=== PATIENT | female | born 1980 | race Hispanic/Latino ===

== ENCOUNTER 2018-05-19 05:44 | Observation (INO) | payer OTHER ==
[~2018-05-19] VITALS: Ht 152.4 cm; Wt 74.0 kg
[~2018-05-19 05:44] MED LIST: AMOXICILLIN500 MG PO; CEPHALEXIN500 MG PO; FLONASE NASAL50 MCG; LORTAB 5/3255 MG PO; METFORMIN500 MG PO; ROBITUSSIN AC10 ML PO; ULTRAM50 M1 PO; [UNRECOGNIZED DRUG - REMARK]
--- NOTE | 2018-05-19 05:52 | NUR ---
PATIENT IMMEDIATELY TO TREATMENT AREA VIA WHEELCHAIR. UNDRESSED INTO A GOWN, TRIAGE COMPLETED AT BEDSIDE, AWAITING MD ONEIL.
[2018-05-19 06:39] LABS: HEMATOCRIT 43.1 % (37.0-47.0); HEMOGLOBIN 13.4 g/dl (12.0-16.0); IMMATURE GRANULOCYTES 0.3 % (0.0-5.0); MEAN CORPUSCULAR HGB 25.9 pG CALC (26.0-32.0); MEAN CORPUSCULAR HGB CONC 31.1 g/L CALC (32.0-36.0); NEUT# 6.19 thou/uL (2.00-7.15); RED BLOOD COUNT 5.18 mill/uL (4.20-5.60); RED CELL DISTRI WIDTH 14.6 % (11.5-15.5)
[2018-05-19 06:41] LABS: MEAN CELL VOLUME 83.2 fL CALC (80.0-100.0)
--- NOTE | 2018-05-19 06:50 | NUR ---
PT CONTINUES TO RETCH WITHOUT ANY VOMITUS. PT STOPPED FOR A WHILE AFTER REGLAN. PT UNABLE TO GET ANYONE TO CARDIAC CATH TECHNICIAN HER OR HER KIDS.
[2018-05-19 06:52] LABS: ALKALINE PHOSPHATASE 114 u/l (38-126); AMYLASE 73 u/l (30-110); BILIRUBIN, TOTAL 0.7 mg/dL (0.0-1.4); BUN 36 mg/dL (7-17); BUN/CREATININE RATIO 43 (12-20 (CALC)); CARBON DIOXIDE 17 mmol/l (22-30); CHLORIDE 106 mmol/l (95-108); CREATININE 0.8 mg/dL (0.5-1.0); GFR > 60 ML/MIN (>=60 (CALC)); GFR FOR AFR.AMER. > 60 ML/MIN (>=60 (CALC)); LIPASE 149 u/l (23-300); POTASSIUM 4.2 mmol/l (3.5-5.1); SGOT/AST 20 u/l (14-36)
--- NOTE | 2018-05-19 06:55 | NUR ---
PT ACTIVELY VOMITING, DENIES ABD PAIN STATES JUST FEELS NAUSEOUS. MEDICATED ORDERED. IVF BOLUS CONTINUES. VSS.
[2018-05-19 07:00] LABS: ALBUMIN 5.1 g/dL (3.2-5.0); ANION GAP 27 (6-22 (CALC)); SODIUM 146 mmol/l (137-146); TOTAL PROTEIN 8.7 g/dL (6.3-8.2)
--- NOTE | 2018-05-19 07:30 | NUR ---
HEAT TREATER HELPER AT BEDSIDE TO TAKE PT FOR CT SCAN. PT UP FROM STRETCHER AND STARTING VOMITING. PT C/O BURNING TO HER THROAT BUT DENIES ANY OTHER PAIN AT THIS TIME. MD NOTIFIED OF PT STATUS.
--- NOTE | 2018-05-19 08:00 | NUR ---
PT UBNABLE TO RECONCILE MEDICATIONS AT THIS TIME. PER PT WHEN SHE TALKS SHE WILL VOMIT. PT ANSWERING QUESTIONS WITH SHAKING HEAD YES OR NO. PT REPORTS CONTINUED NAUSEA. IV FLUIDS INFUSING WITH NO DIFFICULTY, IV SITE FREE FROM REDNESS/EDEMA.
--- NOTE | 2018-05-19 08:20 | NUR ---
PT DRY HEAVING AT THIS TIME. NOTIFIED, AWAITING NEW ORDERS.
--- NOTE | 2018-05-19 08:45 | NUR ---
PT RESTING COMFORTABLY IN STRETCHER WITH EYES CLOSED. BOTH CHILDREN WATCHING TV AND EATING BREAKFAST AT THIS TIME. PER CHILDREN THEIR MOM'S FRIEND IS COMING TO PICK THEM UP.
--- NOTE | 2018-05-19 09:30 | NUR ---
PT RESTING WITH EYES CLOSED. PT REPORTS CONTINUED NASIEA. D5 IMSUDING, IV SITE REMAINS FREE FROM REDNESS/EDEMA. PT AWARE OF PROBABLE PLAN OF CARE.
[2018-05-19] MEDS ORDERED: FLUOXETINE10 MG PO (10:08)
[2018-05-19] MEDS ORDERED: TROKENDI XR100 MG (10:09)
[2018-05-19] MEDS ORDERED: LOSARTAN POT50 MG PO (10:09)
[2018-05-19] MEDS ORDERED: INVOKANA300 MG (10:09)
--- NOTE | 2018-05-19 10:09 | NUR ---
AT BEDSIDE TO DISCUSS ADMISSION WITH PT.
[2018-05-19] MEDS ORDERED: TRULICITY0.75 MG/0. (10:10)
[2018-05-19] MEDS ORDERED: BACLOFEN20 MG PO (10:12)
[2018-05-19] MEDS ORDERED: TERBINAFINE250 M1 PO (10:13)
[2018-05-19] MEDS ORDERED: PROMETHAZINE12.5 M3 RE (10:14)
[2018-05-19] MEDS ORDERED: [UNRECOGNIZED DRUG - CODE] (10:14)
[2018-05-19] MEDS ORDERED: GABAPENTIN600 MG PO (10:15)
--- NOTE | 2018-05-19 10:15 | NUR ---
UNABLE TO VERIFY DOSAGES OF MEDICATIONS WITH PATIENT HAVE MED LIST PRINTED FROM PHARMACY WITH MULTIPLE SAME DRUGS WITH DIFFERENT DOSES.
--- NOTE | 2018-05-19 10:33 | NUR ---
CALL PLACED TO MS, NURSE UNABLE TO TAKE REPORT AT THIS TIME, WILL CALL BACK.
--- NOTE | 2018-05-19 10:40 | NUR ---
REPORT CALLED TO SEN CARD.
--- NOTE | 2018-05-19 11:00 | NUR ---
Admission Note Report Given to: SEN CARD Transported by: Wheelchair X Stretcher Transported with: X Nurse Transporter X Patent IV O2 Special Education Supervisor PT TO ROOM IN STABLE CONDITION. CARE RELINQUISHED TO SEN CARD.
--- NOTE | 2018-05-19 11:00 | NUR ---
PT ARRIVED ON FLOOR @1100, VIA STRETCHER, ACCOMPANIED BY ER STAFF; AMBULATE WITH SLOW, STEADY GAIT TO DIGITAL SCALE, WT OBTAIN & VITALS OBTAIN; D5-1/2 @125CC/HR, IV SITE #20 RFA, SITE APPEARS HEALTHY; VOIDED 600CC CLEAR, YELLOW URINE ON BSC, SPECIMEN SENT TO LAB; PT DRY HEAVE NOTED; ORIENT TO ROOM AND CALL [place] SYSTEM; SAFETY PRECATION REINFORCE; WILL CONTINUE TO MONITOR.
[2018-05-19 11:37] VITALS: BP 155/73
[2018-05-19 11:38] LABS: URINE BILIRUBIN - DIPSTICK NEGATIVE (NEGATIVE); URINE BLOOD DIPSTICK NEGATIVE (NEGATIVE); URINE COLOR YELLOW; URINE GLUCOSE - DIPSTICK >=1000 mg/dL (NEGATIVE); URINE KETONE >=80 mg/dL (NEGATIVE); URINE LEUK ESTERASE NEGATIVE (NEGATIVE); URINE NITRITE - DIPSTICK NEGATIVE (Negative); URINE PROTEIN - DIPSTICK NEGATIVE (NEG-TRACE); URINE SPECIFIC GRAVITY 1.025; URINE UROBILINOGEN - DIPSTICK 0.2 E.U./dL (0.2)
[2018-05-19 12:16] LABS: ANION GAP 20 (6-22 (CALC)); BUN 31 mg/dL (7-17); BUN/CREATININE RATIO 50 (12-20 (CALC)); CARBON DIOXIDE 17 mmol/l (22-30); CHLORIDE 115 mmol/l (95-108); CREATININE 0.6 mg/dL (0.5-1.0); GFR > 60 ML/MIN (>=60 (CALC)); GFR FOR AFR.AMER. > 60 ML/MIN (>=60 (CALC)); SODIUM 148 mmol/l (137-146)
--- NOTE | 2018-05-19 13:17 | NUR ---
PT LAYING ON RT SIDE IN BED; RESP EVEN AND UNLABORED ON ROOM AIR; IVF INFUSING WITHOUT DIFFICULTY; SITE APPEARS HEALTHY; ADMISSION ASSESSMENT COMPLETED; PT POINTS TO THROAT WHEN ASK QUESTIONS, ADVISE TO NOD HEAD Y/N TO COMPLETE ASSESSMENT; DRY COUGH NOTED; TEMP 99.7, COLD WASH CLOTH APPLIED TO FOREHEAD; DENIES ANY NEEDS; OFFER HELP TO BSC, NODS HEAD, TO NO. CALL [place] IN REACH; WILL CONTINUE TO MONITOR.
--- NOTE | 2018-05-19 15:47 | NUR ---
PT OFF FLOOR TO US VIA W/C ACCOMPANIED BY BELT BACK OPERATOR IN STABLE CONDITION.
--- NOTE | 2018-05-19 16:04 | NUR ---
PT RETURN TO FLOOR IN STABLE CONDITION VIA W/C ACCOMPANIED BY ADMINISTRATIVE SUPPORT ASSOC.
[2018-05-19 17:21] VITALS: BP 139/72
[2018-05-19 17:37] VITALS: BP 147/76
[2018-05-19 18:48] LABS: ANION GAP 16 (6-22 (CALC)); BUN 25 mg/dL (7-17); BUN/CREATININE RATIO 42 (12-20 (CALC)); CARBON DIOXIDE 19 mmol/l (22-30); CHLORIDE 116 mmol/l (95-108); CREATININE 0.6 mg/dL (0.5-1.0); GFR > 60 ML/MIN (>=60 (CALC)); GFR FOR AFR.AMER. > 60 ML/MIN (>=60 (CALC)); MAGNESIUM 2.2 mg/dL (1.6-2.3); POTASSIUM 3.7 mmol/l (3.5-5.1); SODIUM 147 mmol/l (137-146)
--- NOTE | 2018-05-19 19:00 | NUR ---
PT IN BED, DRY COUGH AT THIS TIME. DENIES DRY HEAVES OR VOMITING AT THIS TIME. CALL LIGHT AT BEDSIDE AND PT ENCOURAGED TO CALL NEEDS ARISE.
[2018-05-19 19:30] VITALS: BP 126/82
--- NOTE | 2018-05-19 23:41 | NUR ---
FLUIDS REPLENISHED ORDERS PROVIDE. PT SLEEPING SOUNDLY AT THIS TIME. NO S/O DISTRESS NOTED. CALL LIGHT IS AT BEDSIDE.
--- NOTE | 2018-05-20 03:50 | NUR ---
PT IS SLEEPING AT THIS TIME. AWOKE TO OUR ENTERING ROOM. PT DENIES ANY NEEDS AT THIS TIME, DENIES ANY NAUSEA OR VOMITING AT THIS TIME. CALL LIGHT IS AT BEDSIDE AND PT ENCOURAGED TO CALL IF ANY NEEDS ARISE.
[2018-05-20 04:12] VITALS: BP 122/77
--- NOTE | 2018-05-20 07:05 | NUR ---
RPORT RECEIVED FROM JOSE CHU; PT SITTING UP IN BED AWAKE; RESP EVEN AND UNLABORED; VOICE NO CONCERNS. CALL [place] IN REACH.
[2018-05-20 08:12] VITALS: BP 135/82
--- NOTE | 2018-05-20 08:18 | NUR ---
ASSESSMENT COMPLETED; SITTING UP IN BED AWAKE; A/OX3; #20G RFA, D5-1/2 INFUSING WITHOUT DIFFICULTY, SITE APPEARS HEALTHY, AMBULATE PT TO RESTROOM, WALKED WITH SLOW, STEADY GAIT; VOIDED 600CC CLEAR, YELLOW URINE; DID ORAL CARE; TOLERATED WELL; NO COUGH NOTED WHY PERFORMING ORAL CARE; AMBULATE BACK TO BED; TOLERATED WELL; TALKING MUCH MORE TODAY, COMPARE TO YESTERDAY; VOICE NO CONCERNS AT THIS TIME; CALL [place] IN REACH; SAFETY PRECAUTION REINFORCE;
[2018-05-20 09:48] LABS: HEMATOCRIT 37.5 % (37.0-47.0); HEMOGLOBIN 11.5 g/dl (12.0-16.0); IMMATURE GRANULOCYTES 0.3 % (0.0-5.0); MEAN CELL VOLUME 84.7 fL CALC (80.0-100.0); MEAN CORPUSCULAR HGB CONC 30.7 g/L CALC (32.0-36.0); NEUT# 3.44 thou/uL (2.00-7.15); RED BLOOD COUNT 4.43 mill/uL (4.20-5.60); RED CELL DISTRI WIDTH 14.7 % (11.5-15.5)
[2018-05-20 10:09] LABS: ANION GAP 14 (6-22 (CALC)); BUN 16 mg/dL (7-17); BUN/CREATININE RATIO 30 (12-20 (CALC)); CARBON DIOXIDE 19 mmol/l (22-30); CHLORIDE 116 mmol/l (95-108); CREATININE 0.5 mg/dL (0.5-1.0); GFR > 60 ML/MIN (>=60 (CALC)); GFR FOR AFR.AMER. > 60 ML/MIN (>=60 (CALC)); MAGNESIUM 2.1 mg/dL (1.6-2.3); POTASSIUM 3.8 mmol/l (3.5-5.1); SODIUM 146 mmol/l (137-146)
--- NOTE | 2018-05-20 10:31 | NUR ---
PT SITTING UP IN BED WATCHING TV; FAMILY AT BEDSIDE; DOXY INFUSING AT THIS TIME; TEMP 98.9; ASSISTE PT TO REST ROOM; INSTRUCT TO CALL WHEN DONE;
--- NOTE | 2018-05-20 12:10 | NUR ---
PT SITTING UP IN BED, MORE AWAKE AND ALERT TODAY; ORDER TO DC IVF; NO S/S OF DISTRESS NOTED; CALL [place] IN REACH.
[2018-05-20 16:00] VITALS: BP 141/68
--- NOTE | 2018-05-20 16:16 | NUR ---
PT SITTING UP IN BED WATCHING TV AND VISITING WITH FAMILIES; RESP EVEN AND UNLABORED ON ROOM AIR; MEDICATED PER EMAR, ROBITISSUM GIVEN FOR COUGH; IV FLUSHED WELL; SITE APPEARS HEALHY; ENCOURAGE PT TO AMBULATE, SIT UP IN CHAIR, SHOWER; VOICE NO CONCERNS; CALL [place] IN REACH;
--- NOTE | 2018-05-20 18:15 | NUR ---
PT AMBULATE WITH SLOW STEADY GAIT TO BATHROOM FOR A SHOWER; DENIES ANY HELP, INSTURCT TO PULL RED CORD WHEN DONE; LINEN CHANGE PROVIDED.
--- NOTE | 2018-05-20 19:00 | NUR ---
RECEIVED REPORT FROM NURSE CARD, PATIENT RESTING IN BED, NOTED TO HAVE NON PRODUCTIVE COUGH EVEN UNLABORED BREATHING CALL LIGHT WITHIN REACH.
[2018-05-20 20:08] VITALS: BP 147/70
--- NOTE | 2018-05-20 21:05 | NUR ---
CALLED DR. LOPEZ ABOUT PATIENT REQUEST TO CONTINUE GABAPENTIN, ORDERS PUT ARACELI PLACE AWAITING PHARMACY TO VERIFY.
--- NOTE | 2018-05-20 21:45 | NUR ---
PATIENT RESTING IN BED, WITH SALINE LOCK ON RFA G20 PATENT AND FLUSHES WELL, LAST BM 05/20, NOTED TO HAVE NON PRODUCTIVE COUGH,LATEST BS 111MG/DL NO COVERAGE GIVEN, CALL LIGHT AT REACH.
--- NOTE | 2018-05-21 01:06 | NUR ---
PATIENT RESTING IN BED, EYES CLOSED EVEN UNLABORED BREATHING CALL LIGHT AT REACH.
[2018-05-21 04:37] VITALS: BP 142/79
[2018-05-21 05:35] LABS: HEMATOCRIT 37.1 % (37.0-47.0); HEMOGLOBIN 11.6 g/dl (12.0-16.0); IMMATURE GRANULOCYTES 0.5 % (0.0-5.0); MEAN CELL VOLUME 83.2 fL CALC (80.0-100.0); MEAN CORPUSCULAR HGB CONC 31.3 g/L CALC (32.0-36.0); PLATELET COUNT 255 thou/uL (130-400); RED BLOOD COUNT 4.46 mill/uL (4.20-5.60); RED CELL DISTRI WIDTH 14.3 % (11.5-15.5)
[2018-05-21 05:54] LABS: ANION GAP 17 (6-22 (CALC)); BUN 14 mg/dL (7-17); BUN/CREATININE RATIO 26 (12-20 (CALC)); CARBON DIOXIDE 20 mmol/l (22-30); CHLORIDE 110 mmol/l (95-108); CREATININE 0.5 mg/dL (0.5-1.0); GFR > 60 ML/MIN (>=60 (CALC)); GFR FOR AFR.AMER. > 60 ML/MIN (>=60 (CALC)); POTASSIUM 4.5 mmol/l (3.5-5.1); SODIUM 142 mmol/l (137-146)
[2018-05-21 06:31] LABS: MANUAL DIFFERENTIAL YES
[2018-05-21 06:32] LABS: MICROCYTOSIS FEW; OVALOCYTES FEW
[2018-05-21 06:33] LABS: HYPOCHROMIA FEW; PLATELET ESTIMATE NORMAL
--- NOTE | 2018-05-21 06:39 | NUR ---
PATIENT RESTING IN BED, WITH EVEN UNLABLORED BREATHING NO DISCOMFORTS NOTED CALL LIGHT WITHIN REACH.
[2018-05-21 07:52] VITALS: BP 143/65
--- NOTE | 2018-05-21 08:00 | NUR ---
ASSESSMENT COMPLETED; PT SITTING UP IN BED EATING BREAKFAST; RESP EVEN AND UNLABORED; PT STATES "FEELS BETTER TODAY" #20G RFA, FLUSHED WELL, SITE APPEARS HEALTHY; VIDED 800CC, CLEAR, ARDEN URINE; C/O OF NO PAIN; ENCOURAGE PT TO WALK THE HALLS; CALL [place] IN REACH; SAFETY PRECUATION REINFORCE.
--- NOTE | 2018-05-21 11:10 | NUR ---
PT AMBULATE THE HALLS, TOLERATED WELL; RESP EVEN AND UNLABORED ON ROOM AIR; VOICE NO CONCERNS;
--- NOTE | 2018-05-21 11:54 | NUR ---
DR HARRISON AT BEDSIDE TO DISCUSS POC; PT SITTING UP IN BED RESP EVEN AND UNLABORED;
[2018-05-21] MEDS ORDERED: AUGMENTIN875TAB PO (13:32)
[2018-05-21] MEDS ORDERED: DIFLUCAN100 MG PO (14:06)
--- NOTE | 2018-05-21 14:35 | NUR ---
Discharge instructions given. Patient verbalizes understanding of same. Discharged in stable condition via Wheelchair to Home with mother. All belongings sent with pt.
== END 2018-05-21 14:32 | disposition home or self-care (01) ==
LOC: ED 05:44 → ED-I 09:26 → ED 09:44 → MS2 09:45
PROVIDERS: Family Medicine; Nurse Practitioner Family; ADMIT Internal Medicine; ATTEND Internal Medicine
DX: J03.90 Acute tonsillitis, unspecified (principal); E86.0 Dehydration; E87.2 Acidosis; I10 Essential (primary) hypertension; E11.9 Type 2 diabetes mellitus without complications; E78.5 Hyperlipidemia, unspecified; Z79.84 Long term (current) use of oral hypoglycemic drugs; R19.7 Diarrhea, unspecified; R11.2 Nausea with vomiting, unspecified; R05 Cough; R09.82 Postnasal drip
CPT/HCPCS: G0378; S0164; S0166